=== PATIENT | male | born 1970 | race Caucasian/White ===

== ENCOUNTER 2020-12-26 06:29 | Day surgery (SDC) | payer BC ==
[~2020-12-26] VITALS: Ht 175.3 cm; Wt 90.0 kg
[~2020-12-26 06:29] MED LIST: CLONAZEPAM0.5 MG PO; HYDROCHLOROTH12.5 MG PO; LISINOPRIL40 MG PO
[2020-12-26] MEDS ORDERED: ESCITALOPRAM OX10 MG PO (06:52)
--- NOTE | 2020-12-26 07:50 | NUR ---
12/26/20 7080 Sherita Soto 3609-PATIENT ARRIVED TO PACU ON 2L NC AWAKE DROWSY RR EVEN MOVING ALL EXTREMITIES. ABDOMEN SOFT ENCOURAGED TO PASS GAS. DENIES PAIN OR NAUSEA. IVF INFUSING. PATIENT DOZES BACK TO SLEEP
--- NOTE | 2020-12-26 09:24 | NUR ---
PT ALERT, ORIENTED AND SUPPORTED BY HIS . PT IS HERE FOR HIS FIRST SCOPE. SEEMS TO HAVE DEALT WITH HIS PREP APPROPRIATELY. ALL QUESTIONS ASKED ANSWERED PT THANKED ME FOR VISIT, GAVE BLESSING. WILL FOLLOW NEEDED
--- NOTE | 2020-12-26 09:25 | OR ---
[facility] [address], [place] [address] Signed DATE OF OPERATION: 12/26/2020 SURGEON: Evelina Alvarez MD PREOPERATIVE DIAGNOSIS: Screening. POSTOPERATIVE DIAGNOSES: 1. Minimal sigmoid diverticulosis. 2. Minimal internal hemorrhoids. PROCEDURE: Colonoscopy without biopsy. ESTIMATED BLOOD LOSS: None. INDICATIONS: Yuki is a 50-year-old gentleman, asked to see me for his initial screening colonoscopy. He has no lower GI complaints. There is no family history of colon cancer or polyps. However, he is not aware of the paternal side of his family. In the office, I gave him a pamphlet on colonoscopy. He understands the nature of the test. He understands there is risk including, but not limited to gas bloating, crampy abdominal pain, bleeding, perforation requiring surgery, and missed diagnosis. He also understands the need for IV conscious sedation. He does have a generalized anxiety disorder requiring his intermittent clonazepam. I had discussed this in detail with Yuki. He wanted to proceed without monitored anesthesia care. PROCEDURE NOTE: Yuki was taken into our endoscopy suite and placed in the left lateral decubitus position. He was given a total of 10 mg of Versed and 200 mcg of fentanyl. He finally relaxed enough that the scope could advance. The digital rectal exam was unremarkable. The scope passed readily into the cecum itself. It required a little extra sedation and abdominal compression in order to advance the scope. His prep was quite excellent. We could easily see the appendiceal orifice and the ileocecal valve. We took pictures throughout for photodocumentation. The scope was slowly withdrawn. He had a few diverticula in the sigmoid colon. They were small in size few in number, and scattered about. The rectum was unremarkable. Upon retroflexion of scope, he had very tiny internal hemorrhoid columns. After this, the gas was suctioned out and the colonoscope removed. Yuki tolerated the procedure quite well. Electronically Signed By: EVELINA ALVAREZ MD 12/26/20 0925 PATIENT NAME: YUKI WERNER OPERATIVE REPORT DATE OF : 68 REPORT #: [id number] PHYSICIAN: EVELINA ALVAREZ MD PCP: RENETTA ZUNIGA MD REPORT IS CONFIDENTIAL AND NOT TO BE RELEASED WITHOUT AUTHORIZATION [address] [address] Signed RECOMMENDATIONS: Yuki can follow up in 10 years for a repeat colonoscopy. Evelina Alvarez MD ALB/MODL /[id number] cc: MD Renetta Gomez MD Copies: EVELINA ALVAREZ MD, LOHITH VEERAPPA MD ~ Electronically Signed By: EVELINA ALVAREZ MD 12/26/20 0925 PATIENT NAME: YUKI WERNER OPERATIVE REPORT DATE OF : 68 REPORT #: [id number] PHYSICIAN: EVELINA ALVAREZ MD PCP: RENETTA ZUNIGA MD REPORT IS CONFIDENTIAL AND NOT TO BE RELEASED WITHOUT AUTHORIZATION
== END 2020-12-26 08:25 | disposition home or self-care (01) ==
LOC: DS 06:29 → OPS 06:29 → DS 06:45 → OPS 06:45
PROVIDERS: ATTEND Colon & Rectal Surgery
PROC: 0DJD8ZZ Inspection of Lower Intestinal Tract, Via Natural or Artificial Opening Endoscopic (ICD-10-PCS; principal; 2020-12-26 06:45)
DX: Z12.11 Encounter for screening for malignant neoplasm of colon (principal); K57.30 Diverticulosis of large intestine without perforation or abscess without bleeding; K64.8 Other hemorrhoids; I10 Essential (primary) hypertension; F41.1 Generalized anxiety disorder; F32.9 Major depressive disorder, single episode, unspecified; Z87.891 Personal history of nicotine dependence; Z88.8 Allergy status to other drugs, medicaments and biological substances
CPT/HCPCS: 99153; G0500; J2250; J3010; J7121